=== PATIENT | male | born 1960 | race Caucasian/White ===

== ENCOUNTER 2022-03-10 08:16 | Day surgery (SDC) | payer OTHER, MEDICAID ==
[2022-03-10] MEDS ORDERED: fentaNYL 50 MCG/ML SDV ONE (08:20)
[2022-03-10] MEDS ORDERED: Midazolam 1 MG/ML 2 ML SDV ONE (08:20)
[2022-03-10] MEDS ORDERED: Propofol 200 MG/20 ML SDV ONE (08:20)
[2022-03-10] MEDS ORDERED: Lactated Ringers 1,000 ML IV SCH (08:30)
[2022-03-10] MEDS ORDERED: Sodium Chloride 0.9% 1,000 ML IV SCH (08:30)
[2022-03-10] MEDS ORDERED: ceFAZolin 1 GM in Premix Bag 1 BAG IV ONE (08:30)
== END 2022-03-10 10:44 | disposition home or self-care (01) ==
LOC: JP.SDS 08:16
PROVIDERS: ATTEND Family Medicine
DX: Z12.11 Encounter for screening for malignant neoplasm of colon (principal); D12.5 Benign neoplasm of sigmoid colon; K62.1 Rectal polyp; I10 Essential (primary) hypertension; G47.33 Obstructive sleep apnea (adult) (pediatric); M19.90 Unspecified osteoarthritis, unspecified site; F41.9 Anxiety disorder, unspecified; F32.A Depression, unspecified; Z96.659 Presence of unspecified artificial knee joint; Z79.899 Other long term (current) drug therapy; Z88.8 Allergy status to other drugs, medicaments and biological substances
CPT/HCPCS: 45380; 88305; J0690; J2250; J2704; J3010; J7120

== ENCOUNTER 2022-11-30 03:45 | Observation (INO) | payer MEDICAID ==
[2022-11-30] MEDS ORDERED: Sodium Chloride 0.9% 10 ML Syringe FLUSH PRN (04:02)
[2022-11-30] MEDS ORDERED: Sodium Chloride 0.9% 1,000 ML IV ONE (04:05)
[2022-11-30 04:20] LABS: BASE EXCESS VENOUS -0.2 mm/L; BICARBONATE,VENOUS 25.4 mmol/L; CARBOXYHEMOGLOBIN 1.7 % (0.0-1.6); METHEMOGLOBIN 0.9 %; O2 SATURATION VENOUS 86.5; OXYHEMOGLOBIN 84.3 %; PCO2 VENOUS 46.5 mm/Hg; PH,VENOUS 7.356 (7.350-7.450); PO2 VENOUS 56.7 mm/Hg; TOTAL HEMOGLOBIN 16.4 g/dL (13.5-18.0)
[2022-11-30] MEDS ORDERED: Sodium Chloride 0.9% 100 ML IV STA (04:22)
[2022-11-30 04:24] LABS: BASOPHILS ABSOLUTE AUTO 0.03 K/uL (0.00-0.10); BASOPHILS PERCENT AUTO 0.3 % (0.1-1.3); EOSINOPHILS ABSOLUTE AUTO 0.32 K/uL (0.00-0.40); EOSINOPHILS PERCENT AUTO 3.6 % (0.0-5.4); HEMATOCRIT 46.5 % (38.4-49.7); HEMOGLOBIN 15.8 g/dL (12.9-16.9); IMMATURE GRAN ABSOLUTE AUTO 0.06 K/uL (0.00-0.23); IMMATURE GRAN PERCENT AUTO 0.7 % (0.0-0.7); LYMPHOCYTES ABSOLUTE AUTO 1.07 K/uL (0.8-3.3); MEAN CORPUSCULAR HEMOGLOBIN 31.1 pg (31.6-35.5); MEAN CORPUSCULAR VOLUME 91.5 fL (81.4-99.0); MONOCYTES ABSOLUTE AUTO 0.54 K/uL (0.20-0.90); NEUTROPHILS ABSOLUTE AUTO 6.91 K/uL (1.0-7.6); NEUTROPHILS PERCENT AUTO 77.4 % (40.0-78.1); PLATELET COUNT,PLT 168 K/uL (130-375); RED BLOOD CELL COUNT 5.08 M/uL (4.14-5.76); WHITE BLOOD CELL COUNT,WBC 8.9 K/uL (3.2-11.0)
[2022-11-30 04:40] LABS: INR 1.1; PROTHROMBIN TIME 11.1 sec (9.2-10.6); PTT,PARTIAL THROMBOPLSTIN TIME 22.4 sec (21.8-27.3)
[2022-11-30 04:46] LABS: LACTIC ACID 1.3 mmol/L (0.4-2.0)
[2022-11-30 04:54] LABS: ALANINE AMINOTRANSFERASE,ALT 50 U/L (12-78); ASPARTATE AMNIOTRANSFERASE,AST 32 U/L (15-37); BLOOD UREA NITROGEN,BUN 17 mg/dL (7-18); CHLORIDE,CL 106 mmol/L (100-108); CREATININE 1.3 mg/dL (0.8-1.3); EST CRCL DRUG DOSING (CG) 57.73 mL/min; ESTIMATED GFR 63 mL/min (>60); POTASSIUM,K 3.9 mmol/L (3.6-5.2); PROTEIN TOTAL,TP 7.1 g/dL (6.4-8.2); SODIUM,NA 140 mmol/L (140-148)
[2022-11-30] MEDS: Iopamidol 612 MG/ML 100 ML Bottle IV STA (04:55)
[2022-11-30 05:05] LABS: A/G RATIO 1.1 (1.2-2.2); ALBUMIN 3.7 g/dL (3.4-5.0); ALKALINE PHOSPHATASE 64 U/L (46-116); ANION GAP 11.9 mmol/L (5.0-14.0); BILIRUBIN TOTAL 0.6 mg/dL (0.2-1.0); CARBON DIOXIDE,CO2 26 mmol/L (21-32); GLUCOSE RANDOM 166 mg/dL (74-106)
[2022-11-30 05:28] LABS: APPEARANCE,URINE SLIGHTLY CLOUDY (CLEAR); BILIRUBIN,URINE NEGATIVE (NEGATIVE); COLOR,URINE YELLOW (YELLOW); GLUCOSE,URINE NEGATIVE (NEGATIVE); KETONES,URINE NEGATIVE (NEGATIVE); LEUKOCYTE ESTERASE,URINE NEGATIVE (NEGATIVE); NITRITE,URINE NEGATIVE (NEGATIVE); OCCULT BLOOD,URINE NEGATIVE (NEGATIVE); PH,URINE 5.5 (5.0-8.0); PROTEIN,URINE NEGATIVE (NEGATIVE); UROBILINOGEN,URINE 0.2 EU/dL (0.2-1.0)
[2022-11-30 05:36] LABS: AMORPHOUS SEDIMENT,URINE NOT SEEN; BACTERIA,URINE NOT SEEN; EPITHELIAL CELLS,URINE FEW; MUCUS,URINE FEW; RBC,URINE NOT SEEN (0-5); WBC,URINE 0-5 (0-5)
[2022-11-30 05:37] LABS: AMPHETAMINES SCREEN, URINE NEGATIVE (NEGATIVE); BARBITURATE SCREEN,URINE NEGATIVE (NEGATIVE); BENZODIAZEPINES SCREEN,URINE NEGATIVE (NEGATIVE); METHADONE SCREEN, URINE NEGATIVE (NEGATIVE); METHAMPHETAMINES SCREEN, URINE NEGATIVE (NEGATIVE); OXYCODONE SCREEN,URINE NEGATIVE (NEGATIVE); PROPOXYPHENE SCREEN,URINE NEGATIVE (NEGATIVE); THC SCREEN,URINE 50 NG/ML PRESUMPTIVE POSITIVE (NEGATIVE)
[2022-11-30] MEDS ORDERED: Cyproheptadine 4 MG Tab PO ONE (05:46)
[2022-11-30] MEDS ORDERED: Sodium Chloride 0.9% 1,000 ML IV SCH (06:54)
[2022-11-30] MEDS ORDERED: Albuterol 0.083% 2.5 MG/3 ML Neb Soln NEB PRN (06:54)
[2022-11-30] MEDS ORDERED: Ondansetron 4 MG Tab.DIS PO PRN (06:54)
[2022-11-30] MEDS ORDERED: Pantoprazole 40 MG Vial IV ONE (06:54)
[2022-11-30] MEDS ORDERED: Docusate Sodium 100 MG Cap PO PRN (06:54)
[2022-11-30] MEDS ORDERED: Bisacodyl 5 MG Tab PO PRN (06:54)
[2022-11-30] MEDS ORDERED: Acetaminophen 325 MG Tab PO PRN (06:54)
[2022-11-30] MEDS ORDERED: Non-Formulary Medication 1 Each (Bupropion Hcl [Bupropion Xl] 300 MG Tab.Er.24h) PO SCH (09:00)
[2022-11-30] MEDS ORDERED: Cyproheptadine 4 MG Tab PO SCH (09:00)
[2022-11-30] MEDS: amLODIPine 5 MG Tab PO SCH (09:22)
[2022-11-30] MEDS: buPROPion 150 MG Tab.ER PO SCH (09:23)
[2022-11-30] MEDS: Escitalopram 10 MG Tab PO SCH (09:23)
[2022-11-30] MEDS: Enoxaparin 40 MG/0.4 ML Syringe SUBCUT SCH (09:23)
[2022-11-30] MEDS: Losartan 50 MG Tab PO SCH (09:23)
[2022-11-30] MEDS ORDERED: Diclofenac Sodium 75 MG Tab.EC PO PRN (12:46)
[2022-11-30] MEDS: Cyclobenzaprine 10 MG Tab PO SCH ×2 (13:50→20:15)
[2022-11-30] MEDS: Gabapentin 100 MG Cap PO SCH (20:14)
[2022-12-01] MEDS: Cyclobenzaprine 10 MG Tab PO SCH (08:41)
[2022-12-01] MEDS: Losartan 50 MG Tab PO SCH (08:42)
[2022-12-01] MEDS: Enoxaparin 40 MG/0.4 ML Syringe SUBCUT SCH (08:42)
[2022-12-01] MEDS: Gabapentin 100 MG Cap PO SCH (08:42)
[2022-12-01] MEDS: amLODIPine 5 MG Tab PO SCH (08:42)
[2022-12-01] MEDS: buPROPion 150 MG Tab.ER PO SCH (08:42)
[2022-12-01] MEDS: Escitalopram 10 MG Tab PO SCH (08:42)
== END 2022-12-01 13:10 | disposition home or self-care (01) ==
LOC: JP.ED 03:45 → JP.MS 06:35
PROVIDERS: ADMIT Hospitalist; ATTEND Hospitalist
DX: R55 Syncope and collapse (principal); M47.816 Spondylosis without myelopathy or radiculopathy, lumbar region; G47.33 Obstructive sleep apnea (adult) (pediatric); R09.02 Hypoxemia; R41.82 Altered mental status, unspecified; F41.9 Anxiety disorder, unspecified; F32.A Depression, unspecified; I10 Essential (primary) hypertension; G47.30 Sleep apnea, unspecified; R11.2 Nausea with vomiting, unspecified; F12.90 Cannabis use, unspecified, uncomplicated; E66.01 Morbid (severe) obesity due to excess calories; G89.29 Other chronic pain; K76.0 Fatty (change of) liver, not elsewhere classified; R91.8 Other nonspecific abnormal finding of lung field; Z79.899 Other long term (current) drug therapy; Z88.8 Allergy status to other drugs, medicaments and biological substances; Z98.890 Other specified postprocedural states; Z20.822 Contact with and (suspected) exposure to COVID-19; Z68.36 Body mass index [BMI] 36.0-36.9, adult
CPT/HCPCS: 36415; 51702; 70450; 71260; 74177; 80053; 80305; 80307; 81001; 82140; 82803; 82947; 83605; 83690; 84145; 84443; 84484; 85025; 85379; 85610; 85730; 86140; 87040; 87635; 93005; 96360; 96372; 99223; 99239; 99285; A9270; G0378; J1650; J3490; J7030; Q9967; U0002